=== PATIENT | male | born 1995 | race Caucasian/White ===

== ENCOUNTER 2017-01-22 15:37 | Emergency (ER) | payer OTHER ==
[2017-01-22 15:51] VITALS: BP 133/74; PULSE 75; TEMP 97.9; BMI 33.6
--- NOTE | 2017-01-22 15:52 | PDOC ---
Rapid Medical Evaluation Medical Evaluation: Allergies Allergy/AdvReac Type Severity Reaction Status Date / Time No Known Allergies Allergy Verified 01/22/17 15:52 Vital Signs Temp Pulse Resp BP Pulse Ox 97.9 F 75 18 133/74 98 01/22/17 15:49 01/22/17 15:49 01/22/17 15:49 01/22/17 15:49 01/22/17 15:49 <Cece Aguila - Last Filed: 01/22/17 17:38> Medical Evaluation: Allergies Allergy/AdvReac Type Severity Reaction Status Date / Time No Known Allergies Allergy Verified 06/03/16 15:38 01/22/17 15:47 I have performed a brief in-person evaluation of this patient. Mr. Huerta is a 21 yo otherwise healthy M who was walking up a hill, slipped on a patch of ice and fell. C/o lower back pain He denies head trauma, LOC, amnesia Pertinent physical exam findings: Ambulatory in to the Triage area with no difficulty Midline and right paraspinal tenderness to palpation No deformity The patient will proceed to fast track for further evaluation. <Rozina Aparicio - Last Filed: 01/24/17 14:14> Time Seen by Provider: 01/22/17 15:38
[2017-01-22] MEDS ORDERED: KETOROLAC TROMETHAMINE 60 MG/2 ML VIAL ONE (17:32)
[2017-01-22] MEDS ORDERED: CYCLOBENZAPRINE HCL 10 MG TABLET (FP) ONE (17:32)
[2017-01-22] MEDS ORDERED: OXYCODONE/APAP 5/325MG COMBO TABLET ONE (17:33)
[2017-01-22] MEDS ORDERED: OXYCODONE/APAP 5/325MG COMBO TABLET PO ONE (17:38)
[2017-01-22] MEDS ORDERED: CYCLOBENZAPRINE HCL 10 MG TABLET (FP) PO ONE (17:38)
[2017-01-22] MEDS ORDERED: KETOROLAC TROMETHAMINE 60 MG/2 ML VIAL IM ONE (17:38)
--- NOTE | 2017-01-22 17:44 | PDOC ---
History of Present Illness - General Chief Complaint: Pain Stated Complaint: FALL/ LOWER BACK PAIN Time Seen by Provider: 01/22/17 15:38 History Source: Patient, Parent(s) Exam Limitations: No Limitations - History of Present Illness Initial Comments: 01/22/17 17:40 Patient is here with low back pain, primarily right side. States works for [employer], slipped and fell backwards onto sustained back pain and some spasm. Denies numbness or tingling to hands or feet, denies head injury. Severity: reports: mild, moderate Pain Location: reports: none, back Method of Injury: Yes: direct blow, fall Loss of Consciousness: no loss of consciousness Associated Symptoms (Fall): denies symptoms Past History - Travel Traveled outside of the country in the last 30 days: No Close contact w/someone who was outside of country & ill: No - Past Medical History Allergies/Adverse Reactions: Allergies Allergy/AdvReac Type Severity Reaction Status Date / Time No Known Allergies Allergy Verified 01/22/17 15:52 Home Medications: Ambulatory Orders NK [No Known Home Medication] 06/03/16 - Immunization History Immunization Up to Date: Yes - Psycho/Social/Smoking Cessation Hx Anxiety: No Suicidal Ideation: No Smoking History: Never smoked Have you smoked in the past 12 months: No Information on smoking cessation initiated: No Hx Alcohol Use: No Drug/Substance Use Hx: No Substance Use Type: None Trauma Specific PMHX - Complaint Specific PMHX Back Injury: Yes Neck Injury: No Review of Systems - Review of Systems Able to Perform ROS?: Yes Is the patient limited Malagasy proficient: Yes Constitutional: Yes: Symptoms Reported, See HPI, Malaise. No: Fever HEENTM: Yes: See HPI. No: Symptoms Reported Respiratory: Yes: Symptoms reported, See HPI. No: Shortness of Breath, Wheezing Cardiac (ROS): No: Symptoms Reported Musculoskeletal: Yes: Symptoms Reported, See HPI, Back Pain, Muscle Pain Integumentary: Yes: Symptoms Reported, See HPI All Other Systems: Reviewed and Negative *Physical Exam - Vital Signs Last Vital Signs Temp Pulse Resp BP Pulse Ox 97.9 F 75 18 133/74 98 01/22/17 15:49 01/22/17 15:49 01/22/17 15:49 01/22/17 15:49 03/17/17 15:49 - Physical Exam General Appearance: Yes: Nourished, Appropriately Dressed, Apparent Distress, Mild Distress HEENT: positive: ALEXIS, Normal ENT Inspection, TMs Normal, Pharynx Normal Neck: positive: Supple. negative: Tender, Lymphadenopathy (R), Lymphadenopathy (L) Respiratory/Chest: positive: Lungs Clear, Normal Breath Sounds Cardiovascular: negative: Regular Rate Gastrointestinal/Abdominal: positive: Soft. negative: Tender Extremity: positive: Normal Capillary Refill, Normal Inspection, Normal Range of Motion Integumentary: positive: Dry, Warm, Pale. negative: Normal Color Neurologic: positive: boot lace cutter machine II-XII NML intact, Fully Oriented, Alert, Normal Mood/ Affect, Normal Response, Motor Strength 03/12 Progress Note - Progress Note Progress Note: post fall with mild back strain . Given 2 Percocet tablets for pain relief tonight, no prescription for Percocet however will send prescription for cyclobenzaprine *DC/Admit/Observation/Transfer Diagnosis at time of Disposition: Strain of back Qualifiers: Encounter type: initial encounter Qualified Code(s): S39.012A - Strain of muscle, fascia and tendon of lower back, initial encounter - Discharge Dispostion Disposition: HOME Condition at time of disposition: Stable Admit: No - Referrals Referrals: Any Wheatley MD [Primary Care Provider] - - Patient Instructions Printed Discharge Instructions: DI for Back Strain or Sprain Additional Instructions: Rest, no heavy lifting or exercise until pain is resolved Hot soaks to neck and low back as often as possible/hot showers or Jacuzzis No massage or therapy until spasm is gone Continue ibuprofen 2-200 mg tablets every 6 hours for the next 3 days then as needed for pain and swelling Cyclobenzaprine 1-10mg every 8 hours as needed for spasm If not significant improvement within 24 hours with medication and rest regime, followup with private physician for change in medications and /or therapy. - Post Discharge Activity Work/School Note: Back to Work
== END 2017-01-22 17:49 | disposition home or self-care (01) ==
LOC: JERFT 15:37 → SUPCPDRO 15:37 → JERFT 17:49
PROC: 3E0233Z Introduction of Anti-inflammatory into Muscle, Percutaneous Approach (ICD-10-PCS; principal; 2017-01-22)
DX: S39.012A Strain of muscle, fascia and tendon of lower back, initial encounter (principal); W18.39XA Other fall on same level, initial encounter; Y92.9 Unspecified place or not applicable; Y93.9 Activity, unspecified
CPT/HCPCS: 99281-25

== ENCOUNTER 2017-05-04 11:15 | Emergency (ER) | payer OTHER ==
[2017-05-04 11:26] VITALS: BP 134/75; PULSE 66; TEMP 98.3; BMI 35.2
--- NOTE | 2017-05-04 12:10 | PDOC ---
History of Present Illness - General Chief Complaint: Burn Stated Complaint: BURN/ LT FINGER Time Seen by Provider: 05/04/17 11:50 History Source: Patient Exam Limitations: No Limitations - History of Present Illness Initial Comments: 05/04/17 12:07 CHIEF COMPLAINT: Burn to the dorsum of the left fifth finger. HISTORY OF PRESENT ILLNESS: Patient is a 21 y/o male, no significant medical history employee of [employer]. Presents to the ER for evaluation of first degree burn to the fifth finger. While at work he was using a leaf pack plower, went to push blower back on the truck, hand touched the back of the engine where it was hot. Now with intact white patches, ? blisters to the palmar surface of the left fifth finger. 05/04/17 12:17 Occurred: reports: just prior to arrival Severity: reports: moderate Upper Extremity Pain Location: left: 5th finger Method of Injury: reports: burn Modifying Factors: improves with: None Extremity Pain Location - Extremity Pain Location Extremity Pain Locations: left: 5th finger Past History - Past Medical History Allergies/Adverse Reactions: Allergies Allergy/AdvReac Type Severity Reaction Status Date / Time No Known Allergies Allergy Verified 05/04/17 11:23 Other medical history: none - Immunization History Immunization Up to Date: Yes - Psycho/Social/Smoking Cessation Hx Anxiety: No Suicidal Ideation: No Smoking History: Never smoked Have you smoked in the past 12 months: No Information on smoking cessation initiated: No Hx Alcohol Use: No Drug/Substance Use Hx: No Substance Use Type: None Review of Systems - Review of Systems Constitutional: No: Symptoms Reported Respiratory: No: Symptoms reported Cardiac (ROS): No: Symptoms Reported Integumentary: Yes: Erythema, Other (pale area, mildly fluid filled blister ) Hematologic/Lymphatic: No: Lymph Node Abnormalities, Swollen Glands All Other Systems: Reviewed and Negative *Physical Exam - Vital Signs Last Vital Signs Temp Pulse Resp BP Pulse Ox 98.3 F 66 18 134/75 100 05/04/17 11:23 05/04/17 11:23 05/04/17 11:23 05/04/17 11:23 05/04/17 11:23 - Physical Exam General Appearance: Yes: Appropriately Dressed. No: Apparent Distress Neck: negative: Tender lateral, Tender midline Respiratory/Chest: positive: Lungs Clear, Normal Breath Sounds Lymphatic: negative: Adenopathy Musculoskeletal: negative: Decreased Range of Motion Extremity: positive: Erythema, Other (pale area to the PIP, no induration, mildly fluid filled blister over the palmar surface of the PIP. ) Integumentary: positive: Erythema. negative: Swelling, Ecchymosis, Bruising Neurologic: positive: Alert, Normal Mood/Affect Medical Decision Making - Medical Decision Making 05/04/17 12:32 A/P : Patient with first-degree burn to left fifth finger palmar surface not circumferential. Area over the PIP. No open area is noted. Bacitracin applied, clean sterile dressing, patient instructed to return if area opens for reevaluation and change in treatment. He verbalized understanding. Good ROM to finger. Tetanus is up to date. I discussed the physical exam findings, proper care instructions and final diagnoses with the patient. I answered all of the patient's questions. The patient was satisfied with the care received and felt comfortable with the discharge plan and treatment plan. The patient will call to arrange follow-up and will return to the Emergency Department with any new, persistent or worsening symptoms. 05/04/17 13:00 *DC/Admit/Observation/Transfer Diagnosis at time of Disposition: First degree burn injury - Discharge Dispostion Admit: No - Referrals Referrals: Any Wheatley MD [Primary Care Provider] - - Patient Instructions Printed Discharge Instructions: How to Take Care of a Burn Additional Instructions: Please keep area covered. Bacitracin twice a day, please clean area with mild soap and water between applications. If area blisters open return to the ER for evavluation and change in cream that will be applied to wound. If any increased redness, swelling or infection return to the ER - Post Discharge Activity Work/School Note: Back to Work
== END 2017-05-04 12:19 | disposition home or self-care (01) ==
LOC: JERFT 11:15
PROC: 2W2KX4Z Dressing of Left Finger using Bandage (ICD-10-PCS; principal; 2017-05-04)
DX: T23.122A Burn of first degree of single left finger (nail) except thumb, initial encounter (principal); X17.XXXA Contact with hot engines, machinery and tools, initial encounter; Y93.H9 Activity, other involving exterior property and land maintenance, building and construction; Y92.89 Other specified places as the place of occurrence of the external cause; Y99.0 Civilian activity done for income or pay
CPT/HCPCS: 99281-25

== ENCOUNTER 2018-06-17 11:01 | Emergency (ER) | payer BC, OTHER ==
[2018-06-17 11:27] VITALS: BP 139/84; PULSE 80; TEMP 97.7; BMI 36.8
--- NOTE | 2018-06-17 12:10 | PDOC ---
History of Present Illness - General Chief Complaint: Pain Stated Complaint: LT SIDE INJURY Time Seen by Provider: 06/17/18 11:34 History Source: Patient Exam Limitations: No Limitations - History of Present Illness Initial Comments: 06/17/18 12:08 2-year-old female status post injury to the left rib cage after playing softball yesterday complaining of left rib pain worsened with deep breathing and movement. Patient states took 2 Tylenol this morning with no improvement. Patient denies difficulty breathing, palpitations, dizziness or nausea 06/17/18 18:31 Timing/Duration: 24 hours Severity: mild Associated Symptoms: reports: chest pain Past History - Past Medical History Allergies/Adverse Reactions: Allergies Allergy/AdvReac Type Severity Reaction Status Date / Time No Known Allergies Allergy Verified 06/17/18 11:20 Home Medications: Ambulatory Orders NK [No Known Home Medication] 06/17/18 COPD: No Kidney Stones: Yes (FATTY LIVER) - Immunization History Immunization Up to Date: Yes - Suicide/Smoking/Psychosocial Hx Smoking History: Never smoked Have you smoked in the past 12 months: No Hx Alcohol Use: No Drug/Substance Use Hx: No Substance Use Type: None Patient Lives Alone: No Lives with/in: parents Review of Systems - Review of Systems Able to Perform ROS?: No Constitutional: No: Symptoms Reported HEENTM: No: Symptoms Reported Respiratory: No: Symptoms reported Cardiac (ROS): Yes: Chest Pain ABD/GI: No: Symptoms Reported Musculoskeletal: Yes: Joint Pain Integumentary: No: Symptoms Reported Neurological: No: Symptoms reported *Physical Exam - Vital Signs Last Vital Signs Temp Pulse Resp BP Pulse Ox 97.7 F 80 19 139/84 98 06/17/18 11:20 06/17/18 11:20 06/17/18 11:20 06/17/18 11:20 06/17/18 11:20 - Physical Exam General Appearance: Yes: Nourished, Appropriately Dressed. No: Apparent Distress Respiratory/Chest: positive: Chest Tender (left seventh intercostal space at midclavicular line ) Cardiovascular: positive: Regular Rhythm, Regular Rate. negative: Murmur Gastrointestinal/Abdominal: positive: Soft. negative: Tenderness Extremity: positive: Normal Capillary Refill Integumentary: positive: Normal Color, Warm, Moist Neurologic: positive: Motor Strength 5/5 ED Treatment Course - RADIOLOGY Radiology Studies Ordered: Category Date Time Status RIBS-LEFT SIDE [RAD] Stat Radiology 06/17/18 12:05 Ordered Medical Decision Making - Medical Decision Making 06/17/18 12:09 Injury to left chest pain supple yesterday complaining of left rib pain. Patient examined reproducible left rib cage pain without crepitus or deformity. Patient is without erythema or edema ecchymosis. Patient was ordered for rib x- ray series 06/17/18 12:40 X-rays negative for fracture. Patient to be discharged home with discharge instructions of rib contusion 06/17/18 12:40 *DC/Admit/Observation/Transfer Diagnosis at time of Disposition: Contusion of rib on left side - Discharge Dispostion Disposition: HOME Condition at time of disposition: Good - Referrals Referrals: Pablito Bear MD [Primary Care Provider] - - Patient Instructions Printed Discharge Instructions: DI for Rib Contusion Additional Instructions: Rest, take Tylenol for discomfort and apply ice effected area. Avoid movements that trigger your discomfort - Post Discharge Activity
== END 2018-06-17 12:48 | disposition home or self-care (01) ==
LOC: JERFT 11:01
DX: R07.81 Pleurodynia (principal); W21.03XA Struck by baseball, initial encounter; Y93.64 Activity, baseball; Y92.9 Unspecified place or not applicable
CPT/HCPCS: 71101-TC-FY; 99281-25

== ENCOUNTER 2018-08-30 15:37 | Emergency (ER) | payer BC ==
[2018-08-30 15:55] VITALS: BP 132/84; PULSE 81; TEMP 98.8; BMI 37.5
--- NOTE | 2018-08-30 16:01 | PDOC ---
Rapid Medical Evaluation Chief Complaint: Injury Time Seen by Provider: 08/30/18 15:56 Medical Evaluation: Allergies Allergy/AdvReac Type Severity Reaction Status Date / Time No Known Allergies Allergy Verified 08/30/18 15:51 Vital Signs Temp Pulse Resp BP Pulse Ox 98.8 F 81 20 132/84 97 08/30/18 15:51 08/30/18 15:51 08/30/18 15:51 08/30/18 15:51 08/30/18 15:51 08/30/18 15:56 I have performed a brief in-person evaluation of this patient. The patient presents with a chief complaint of: left foot pain s/p injury during football yesterday Pertinent physical exam findings: moderate tenderness over lateral side of left foot with mild swelling I have ordered the following: x-rays of left foot The patient will proceed to the ED for further evaluation. Discharge Disposition - Diagnosis Left foot pain - Referrals - Patient Instructions - Post Discharge Activity
--- NOTE | 2018-08-30 16:51 | PDOC ---
History of Present Illness - General Chief Complaint: Injury Stated Complaint: Injury Time Seen by Provider: 08/30/18 15:56 - History of Present Illness Initial Comments: 08/30/18 16:48 23-year-old male without comorbidities presents for evaluation of left foot pain. He states he was playing soft ball yesterday and was struck in the left foot with the ball. He's had pain and swelling since Past History - Past Medical History Allergies/Adverse Reactions: Allergies Allergy/AdvReac Type Severity Reaction Status Date / Time No Known Allergies Allergy Verified 08/30/18 15:51 Home Medications: Ambulatory Orders NK [No Known Home Medication] 06/17/18 NK [No Known Home Medication] 06/24/18 COPD: No Kidney Stones: Yes (FATTY LIVER) Liver Disease: Yes (FATTY LIVER) - Immunization History Immunization Up to Date: Yes - Suicide/Smoking/Psychosocial Hx Smoking History: Never smoked Have you smoked in the past 12 months: No Hx Alcohol Use: No Drug/Substance Use Hx: No Substance Use Type: None Review of Systems - Review of Systems Musculoskeletal: Yes: Symptoms Reported, See HPI All Other Systems: Reviewed and Negative *Physical Exam - Vital Signs Last Vital Signs Temp Pulse Resp BP Pulse Ox 98.8 F 81 20 132/84 97 08/30/18 15:51 08/30/18 15:51 08/30/18 15:51 08/30/18 15:51 08/30/18 15:51 - Physical Exam Comments: 08/30/18 16:48 Left foot is mildly ecchymotic at the MTPJ's of the second and third MTPJ. Mildly decreased range of motion with discomfort. No other areas of tenderness. Mild tenderness over the second and third MTPJ. Full ankle range of motion without instability no other areas tenderness about the dorsum of the foot. There are no gross sensorimotor deficits. Is neurovascular intact. Medical Decision Making - Medical Decision Making 08/30/18 16:49 NO evidence of acute fracture or trauma *DC/Admit/Observation/Transfer Diagnosis at time of Disposition: Left foot pain, Foot contusion - Discharge Dispostion Disposition: HOME Condition at time of disposition: Stable Decision to Admit order: No - Referrals Referrals: Pablito Bear MD [Primary Care Provider] - Mauricio Rust MD [Staff Physician] - - Patient Instructions Printed Discharge Instructions: Contusion Additional Instructions: He may weight-bear as tolerated with use of a hard sole shoe and crutches. Return to the emergency room should symptoms worsen or go unresolved. Follow-up with orthopedic surgery in 2-3 days for further evaluation and treatment options. - Post Discharge Activity
== END 2018-08-30 16:58 | disposition home or self-care (01) ==
LOC: JERFT 15:37 → JER 15:37 → JERFT 16:58
DX: S90.32XA Contusion of left foot, initial encounter (principal); W21.07XA Struck by softball, initial encounter; Y93.64 Activity, baseball; Y92.320 Baseball field as the place of occurrence of the external cause; Y99.8 Other external cause status
CPT/HCPCS: 73630-TC-LT; 99281-25

== ENCOUNTER 2018-12-27 11:04 | Emergency (ER) | payer OTHER, BC ==
[2018-12-27 11:23] VITALS: BP 127/86; PULSE 96; TEMP 98.7; BMI 37.5
--- NOTE | 2018-12-27 12:27 | PDOC ---
History of Present Illness - General Stated Complaint: LT LEG PAIN Time Seen by Provider: 12/27/18 12:18 - History of Present Illness Initial Comments: 12/27/18 12:22 23-year-old male without comorbidities presents for evaluation of left foot and ankle pain after twisting type injury while at work this morning. Past History - Past Medical History Allergies/Adverse Reactions: Allergies Allergy/AdvReac Type Severity Reaction Status Date / Time No Known Allergies Allergy Verified 12/27/18 11:18 Home Medications: Ambulatory Orders NK [No Known Home Medication] 06/17/18 NK [No Known Home Medication] 06/24/18 COPD: No Kidney Stones: Yes (FATTY LIVER) Liver Disease: Yes (FATTY LIVER) - Immunization History Immunization Up to Date: Yes - Suicide/Smoking/Psychosocial Hx Smoking History: Never smoked Have you smoked in the past 12 months: No Hx Alcohol Use: No Drug/Substance Use Hx: No Substance Use Type: None Review of Systems - Review of Systems Musculoskeletal: Yes: Joint Pain *Physical Exam - Vital Signs Last Vital Signs Temp Pulse Resp BP Pulse Ox 98.7 F 96 H 18 127/86 98 12/27/18 11:20 12/27/18 11:20 12/27/18 11:20 12/27/18 11:20 12/27/18 11:20 - Physical Exam Comments: 12/27/18 12:23 Left ankle skin color and temperature are normal. Range of motion is full. There is no tenderness about the knee proximal fibula, along its distal coarse, no tenderness about the medial lateral malleolus to the fifth metatarsal or navicular. There is mild tenderness over the ATFL and mild tenderness at the dorsum of the foot with metatarsal compression. No evidence of instability or gross sensorimotor deficits. Is neurovascularly intact. Moderate Sedation - Procedure Monitoring Vital Signs: Procedure Monitoring Vital Signs Temperature 98.7 F 12/27/18 11:20 Pulse Rate 96 H 12/27/18 11:20 Respiratory Rate 18 12/27/18 11:20 Blood Pressure 127/86 12/27/18 11:20 O2 Sat by Pulse Oximetry (%) 98 12/27/18 11:20 ED Treatment Course - RADIOLOGY Radiology Studies Ordered: Category Date Time Status ANKLE & FOOT-LEFT* [RAD] Stat Radiology 12/27/18 12:21 Ordered Medical Decision Making - Medical Decision Making 12/27/18 13:07 L foot and ankle no fx, moderate OA changes *DC/Admit/Observation/Transfer Diagnosis at time of Disposition: Sprain of foot, left, Sprain of ankle, left - Discharge Dispostion Disposition: HOME Condition at time of disposition: Stable Decision to Admit order: No - Referrals Referrals: Pablito Bear MD [Primary Care Provider] - Van Felix DO [Staff Physician] - - Patient Instructions Printed Discharge Instructions: Ankle Sprain, DI for Ankle Sprain, DI for Foot Sprain Additional Instructions: He may weight-bear as tolerated with use of the Aircast and crutches. Tylenol and Motrin as directed for pain and swelling. Return to the emergency room for worsening symptoms. Follow-up with orthopedic surgery in 1-2 days for further evaluation and treatment options. - Post Discharge Activity
== END 2018-12-27 13:17 | disposition home or self-care (01) ==
LOC: JERFT 11:04 → JER 11:04 → JERFT 13:17
PROC: 2W3RX1Z Immobilization of Left Lower Leg using Splint (ICD-10-PCS; principal; 2018-12-27)
DX: S93.402A Sprain of unspecified ligament of left ankle, initial encounter (principal); S93.602A Unspecified sprain of left foot, initial encounter; X50.1XXA Overexertion from prolonged static or awkward postures, initial encounter; Y93.H9 Activity, other involving exterior property and land maintenance, building and construction; Y92.89 Other specified places as the place of occurrence of the external cause; Y99.0 Civilian activity done for income or pay
CPT/HCPCS: 73610-TC-LT-FY; 73630-TC-LT; 99281-25

== ENCOUNTER 2019-01-27 15:27 | Emergency (ER) | payer BC, OTHER ==
--- NOTE | 2019-01-27 15:38 | PDOC ---
Rapid Medical Evaluation Time Seen by Provider: 01/27/19 15:36 Medical Evaluation: Allergies Allergy/AdvReac Type Severity Reaction Status Date / Time No Known Allergies Allergy Verified 01/27/19 15:36 01/27/19 15:37 I have performed a brief in-person evaluation of this patient. The patient presents with a chief complaint of:s/p slip and fall from standing, fell on L side, did not hit head no LOC at 11:30 this am and worked all day Pertinent physical exam findings:NAD no gross deficits. I have ordered the following:nothing 01/27/19 15:37 Discharge Disposition - Diagnosis Fall - Referrals - Patient Instructions - Post Discharge Activity
[2019-01-27 15:39] VITALS: BP 135/71; PULSE 84; TEMP 98.1; BMI 38.3
[2019-01-27] MEDS ORDERED: IBUPROFEN 600 MG TABLET (FP) PO ONE ×2 (16:26→16:30)
--- NOTE | 2019-01-27 16:31 | PDOC ---
History of Present Illness - General Chief Complaint: Injury Stated Complaint: FALL Time Seen by Provider: 01/27/19 15:36 History Source: Patient Exam Limitations: No Limitations - History of Present Illness Initial Comments: 01/27/19 16:26 Patient reports was at [employer] this morning/ When he slipped on wet floor falling onto his left side banging his left elbow, left hip, and mildly hyperextending his left thigh. Completed his work today but states has progressive pain to his left elbow when his left hip. Denies head injury, no neurologic issues, and has taken no medication for relief of pain. 01/27/19 16:28 Occurred: reports: this morning Severity: reports: mild, moderate Pain Location: reports: lower extremity (lefty hip and thigh), upper extremity ( left elbow) Method of Injury: Yes: direct blow, fall Modifying Factors: improves with: None Loss of Consciousness: no loss of consciousness Associated Symptoms (Fall): denies symptoms Past History - Travel Traveled outside of the country in the last 30 days: No Close contact w/someone who was outside of country & ill: No - Past Medical History Allergies/Adverse Reactions: Allergies Allergy/AdvReac Type Severity Reaction Status Date / Time No Known Allergies Allergy Verified 01/27/19 15:36 Home Medications: Ambulatory Orders NK [No Known Home Medication] 01/27/19 COPD: No Kidney Stones: Yes (FATTY LIVER) Liver Disease: Yes (FATTY LIVER) - Immunization History Immunization Up to Date: Yes - Suicide/Smoking/Psychosocial Hx Smoking History: Never smoked Have you smoked in the past 12 months: No Hx Alcohol Use: No Drug/Substance Use Hx: No Substance Use Type: None Trauma Specific PMHX - Complaint Specific PMHX Back Injury: Yes Neck Injury: No Review of Systems - Review of Systems Able to Perform ROS?: Yes Is the patient limited Occitan proficient: Yes Constitutional: Yes: Symptoms Reported, See HPI, Malaise HEENTM: Yes: Symptoms Reported, See HPI Respiratory: Yes: Symptoms reported, See HPI. No: Cough Musculoskeletal: Yes: Symptoms Reported, See HPI, Joint Pain, Joint Swelling ( left elbow) Integumentary: Yes: Symptoms Reported Neurological: Yes: See HPI. No: Symptoms reported, Headache All Other Systems: Reviewed and Negative *Physical Exam - Vital Signs Last Vital Signs Temp Pulse Resp BP Pulse Ox 98.1 F 84 18 135/71 98 01/27/19 15:36 01/27/19 15:36 01/27/19 15:36 01/27/19 15:36 01/27/19 15:36 - Physical Exam General Appearance: Yes: Nourished, Appropriately Dressed, Apparent Distress, Mild Distress HEENT: positive: ALEXIS, Normal ENT Inspection, TMs Normal, Pharynx Normal Neck: positive: Supple. negative: Tender Respiratory/Chest: positive: Lungs Clear Musculoskeletal: positive: Other (no bruising noted no bone tenderness along the vertebral spine, no contusions or other deformities noted. Patient has some mild swelling and tenderness midpoint left gluteus but no crepitus or step-offs , and is ambulatory without unsteadiness or limp.) Extremity: positive: Normal Capillary Refill, Normal Inspection. negative: Normal Range of Motion (mild tenderness with supination and pronation at left elbow, but able to flex and extend with strong grasp flexion and extension to fingers.) Integumentary: positive: Normal Color, Dry, Warm. 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 Multiple contusions status post fall, We'll treat with NSAIDs, and WYATT E *DC/Admit/Observation/Transfer Diagnosis at time of Disposition: Multiple contusions - Discharge Dispostion Disposition: HOME Condition at time of disposition: Stable Decision to Admit order: No - Referrals - Patient Instructions Printed Discharge Instructions: Easy Bruising (Alternative Therapy) Additional Instructions: Rest, ice to area on and off for 15 minutes 4-6 times a day Avoid heavy lifting or exercise until pain and swelling is resolved or until further directed Keep area highly elevated to reduce swelling Use splints/Enrike wrap as directed Followup with orthopedist in one to 2 days if not improving, if significantly improved may wait one week for followup with orthopedist May use ibuprofen every 6 hours as needed for pain - Post Discharge Activity Forms/Work/School Notes: Back to Work
== END 2019-01-27 16:56 | disposition home or self-care (01) ==
LOC: JERFT 15:27
DX: S70.02XA Contusion of left hip, initial encounter (principal); S50.02XA Contusion of left elbow, initial encounter; W01.0XXA Fall on same level from slipping, tripping and stumbling without subsequent striking against object, initial encounter; Y93.89 Activity, other specified; Y92.511 Restaurant or cafe as the place of occurrence of the external cause; Y99.0 Civilian activity done for income or pay
CPT/HCPCS: 73070-TC-LT-FY; 99281-25

== ENCOUNTER 2019-06-06 14:30 | Emergency (ER) | payer OTHER, BC ==
--- NOTE | 2019-06-06 14:38 | PDOC ---
Rapid Medical Evaluation Time Seen by Provider: 06/06/19 14:36 Medical Evaluation: Allergies Allergy/AdvReac Type Severity Reaction Status Date / Time No Known Allergies Allergy Verified 01/27/19 15:36 06/06/19 14:37 I have performed a brief in-person evaluation of this patient. The patient presents with a chief complaint of: itchy rash to b/l forearms x4 days Pertinent physical exam findings: pink blanching pruritc rash to b/l forearms c/ w toxicodendron dermatitis I have ordered the following: benadryl The patient will proceed to the ED for further evaluation. Discharge Disposition - Diagnosis Toxicodendron dermatitis - Referrals - Patient Instructions - Post Discharge Activity
[2019-06-06 14:40] VITALS: BP 124/82; PULSE 76; TEMP 98.3; BMI 34.4
[2019-06-06] MEDS ORDERED: diphenhydrAMINE HCL 25 MG CAPSULE (FP) PO ONE (14:46)
[2019-06-06] MEDS: diphenhydrAMINE HCL 25 MG CAPSULE (FP) PO ONE ×2 (14:47→14:49)
--- NOTE | 2019-06-06 16:04 | PDOC ---
History of Present Illness - General Chief Complaint: Poison [place],Poison Korin Exposure Stated Complaint: BODY RASH Time Seen by Provider: 06/06/19 14:36 History Source: Patient Exam Limitations: No Limitations Past History - Past Medical History Allergies/Adverse Reactions: Allergies Allergy/AdvReac Type Severity Reaction Status Date / Time No Known Allergies Allergy Verified 06/06/19 14:37 Home Medications: Ambulatory Orders Clobetasol Propionate/Emoll [Clobetasol Emollient 0.05% Crm] 30 gm TP BID #1 cream..g. 06/06/19 COPD: No Kidney Stones: No Liver Disease: No - Immunization History Immunization Up to Date: Yes - Suicide/Smoking/Psychosocial Hx Smoking History: Never smoked Have you smoked in the past 12 months: No Hx Alcohol Use: No Drug/Substance Use Hx: No Substance Use Type: None *Physical Exam - Vital Signs Last Vital Signs Temp Pulse Resp BP Pulse Ox 98.3 F 76 18 124/82 100 06/06/19 14:37 06/06/19 14:37 06/06/19 14:37 06/06/19 14:37 06/06/19 14:37 - Physical Exam General Appearance: No: Apparent Distress Integumentary: positive: Other (few scattered erythematous bumps along B/L forearms (difficult to visualize due to tattoos along patient's arms), no vesicular lesions noted, rash is not noted anywhere else on body). negative: Swelling, Ecchymosis, Bruising Neurologic: positive: Alert, Normal Mood/Affect ED Treatment Course - Medications Given in the ED: ED Medications Discontinued Medications Generic Name Dose Route Start Last Admin Trade Name Emanuel PRN Reason Stop Dose Admin Diphenhydramine HCl 50 mg 06/06/19 14:38 06/06/19 14:49 Benadryl - PO 06/06/19 14:39 Not Given ONCE ONE Medical Decision Making - Medical Decision Making 23 y/o M with no sig pmh presents with complain of itchy rash along B/L forearms x 5 days. 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 Tried topical hydrocortisone cream without much relief. Denies fever. Poison korin rash - care discussed 06/06/19 16:03 *DC/Admit/Observation/Transfer Diagnosis at time of Disposition: Toxicodendron dermatitis - Discharge Dispostion Disposition: HOME Condition at time of disposition: Stable Decision to Admit order: No - Prescriptions Prescriptions: Clobetasol Propionate/Emoll [Clobetasol Emollient 0.05% Crm] 30 gm TP BID #1 cream..g. - Referrals Referrals: Pablito Bear MD [Primary Care Provider] - 2 Days - Patient Instructions Printed Discharge Instructions: DI for Poison Korin Allergy Additional Instructions: Thank you for choosing [facility]. It was a pleasure taking care of you. Apply cream prescribed Also recommend oatmeal baths, cool, wet compresses If you notice any weeping lesions, you can apply Burow's solution Calamine lotion may also help relieve itch Return to the Emergency Department if your symptoms worsen or persist or have other concerning symptoms. - Post Discharge Activity
== END 2019-06-06 16:13 | disposition home or self-care (01) ==
LOC: JERFT 14:30
DX: L23.7 Allergic contact dermatitis due to plants, except food (principal); X58.XXXA Exposure to other specified factors, initial encounter; Y93.H2 Activity, gardening and landscaping; Y92.89 Other specified places as the place of occurrence of the external cause; Y99.0 Civilian activity done for income or pay
CPT/HCPCS: 99281-25

== ENCOUNTER 2019-06-08 10:00 | Emergency (ER) | payer OTHER, BC ==
[2019-06-08 10:06] VITALS: BP 121/78; PULSE 78; TEMP 98.1; BMI 34.4
--- NOTE | 2019-06-08 11:26 | PDOC ---
History of Present Illness - General Chief Complaint: Abrasion Stated Complaint: LT. 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 NO other complaints today, no active bleeding, no other injury. Last tetanus shot was 2 years ago. Past History - Past Medical History Allergies/Adverse Reactions: Allergies Allergy/AdvReac Type Severity Reaction Status Date / Time No Known Allergies Allergy Verified 06/08/19 10:04 Home Medications: Ambulatory Orders Clobetasol Propionate/Emoll [Clobetasol Emollient 0.05% Crm] 30 gm TP BID #1 cream..g. 06/06/19 COPD: No Kidney Stones: No Liver Disease: No - Immunization History Immunization Up to Date: Yes - Suicide/Smoking/Psychosocial Hx Smoking History: Never smoked Have you smoked in the past 12 months: No Hx Alcohol Use: No Drug/Substance Use Hx: No Substance Use Type: None Review of Systems - Review of Systems Able to Perform ROS?: Yes Constitutional: No: Chills, Fever, Malaise, Night Sweats HEENTM: No: Eye Pain, Recent change in vision, Throat Pain Respiratory: No: Cough, Shortness of Breath Cardiac (ROS): No: Chest Pain, Palpitations, Chest Tightness ABD/GI: No: Diarrhea, Nausea, Vomiting, Abdominal cramping : No: Dysuria, Hematuria Musculoskeletal: No: Back Pain Integumentary: No: Rash Neurological: No: Headache, Numbness, Dizziness Psychiatric: No: Change in Appetite Endocrine: No: Unexplained Weight Loss *Physical Exam - Vital Signs Last Vital Signs Temp Pulse Resp BP Pulse Ox 98.1 F 78 18 121/78 98 06/08/19 10:04 06/08/19 10:04 06/08/19 10:04 06/08/19 10:04 06/08/19 10:04 - Physical Exam General Appearance: Yes: Nourished. No: Apparent Distress HEENT: positive: ALEXIS, Normal ENT Inspection, Normal Voice. negative: Pale Conjunctivae, Scleral Icterus (R), Scleral Icterus (L) Neck: positive: Supple. negative: Decreased range of motion, Tender midline Respiratory/Chest: positive: Lungs Clear. negative: Respiratory Distress, Accessory Muscle Use Cardiovascular: positive: Regular Rate Gastrointestinal/Abdominal: positive: Soft Musculoskeletal: positive: Normal Inspection. negative: Decreased Range of Motion Extremity: positive: Normal Capillary Refill, Normal Inspection, Normal Range of Motion, Other (L lower leg with a 1mm puncture wound, no active bleeding now. No surrounding erythema, no swelling, no tenderness, no signs of infection. ). negative: Tender, Pedal Edema Integumentary: positive: Normal Color, Dry. negative: Jaundice, Rash Neurologic: positive: Fully Oriented, Alert, Normal Mood/Affect ED Treatment Course - RADIOLOGY Radiology Studies Ordered: Category Date Time Status LEG TIB/FIB-LEFT [RAD] Stat Radiology 06/08/19 10:53 Completed Medical Decision Making - Medical Decision Making 06/08/19 11:24 23 yo M w/ puncture wound sustained from object (he thinks it was glass) while at work. Pt asking for xray to R?O foreign body Xray done, no FB seen. Pt UTD with tetanus. Wound cleaned thoroughly with betadine, saline, bacitracin and sterile gauze applied to wound F/U with PMD in 2 days for wound check Return for worsening/concerning symptoms Pt verbalizes understanding and agrees with plan 06/08/19 11:36 *DC/Admit/Observation/Transfer Diagnosis at time of Disposition: Puncture wound - Discharge Dispostion Disposition: HOME Condition at time of disposition: Stable - Referrals - Patient Instructions Additional Instructions: Please follow up with your regular doctor in 2-3 days for reevaluation. Return to the ER for worsening/concerning symptoms including signs of infection like redness, discharge, swelling, pain or any other concerning symptoms. You may apply bacitracin to the wound for the next 2 days. - Post Discharge Activity Forms/Work/School Notes: Back to Work
== END 2019-06-08 11:27 | disposition home or self-care (01) ==
LOC: JERFT 10:00
DX: S81.832A Puncture wound without foreign body, left lower leg, initial encounter (principal); W26.8XXA Contact with other sharp object(s), not elsewhere classified, initial encounter; Y93.H9 Activity, other involving exterior property and land maintenance, building and construction; Y92.89 Other specified places as the place of occurrence of the external cause; Y99.0 Civilian activity done for income or pay
CPT/HCPCS: 73590-TC-LT-FY; 99281-25

== ENCOUNTER 2020-05-21 14:00 | Emergency (ER) | payer OTHER, BC ==
[2020-05-21 14:25] VITALS: BP 123/70; PULSE 74; TEMP 97.8; BMI 29.7
--- NOTE | 2020-05-21 15:14 | PDOC ---
History of Present Illness - General Chief Complaint: Injury Stated Complaint: SHOULDER INJURY Time Seen by Provider: 05/21/20 14:33 History Source: Patient Exam Limitations: No Limitations - History of Present Illness Initial Comments: 05/21/20 15:09 Patient is a 24-year-old male with no past medical history presents to the ED with left anterior shoulder pain that started at about 830 this morning. 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 He pulled the car seat and felt a strain in his anterior shoulder. He denies feeling a pop or crack. He continued to work for the remainder of the day but states the pain got worse. He states he was primarily using his right arm at that point. He denies any numbness or tingling. He states the pain is primarily on the anterior aspect of the shoulder but he does feel some pain laterally and posteriorly. He has not taken anything for his symptoms. Past History - Medical History Allergies/Adverse Reactions: Allergies Allergy/AdvReac Type Severity Reaction Status Date / Time No Known Allergies Allergy Verified 05/21/20 14:22 Home Medications: Ambulatory Orders Clobetasol Propionate/Emoll [Clobetasol Emollient 0.05% Crm] 30 gm TP BID #1 cream..g. 06/06/19 COPD: No Kidney Stones: No Liver Disease: No - Immunization History Immunization Up to Date: Yes - Psycho-Social/Smoking History Smoking History: Never smoked Have you smoked in the past 12 months: No Information on smoking cessation initiated: No - Substance Abuse Hx (Audit-C & DAST Scrn) How often the patient has a drink containing alcohol: Never Score: In Men: 4 or > Positive; In Women: 3 or > Positive: 0 Screen Result (Pos requires Nsg. Audit-10AR): Negative Review of Systems - Review of Systems Comments:: 05/21/20 15:10 - Review of Systems Able to Perform ROS?: Yes Constitutional: No: Fever, Chills, Loss of Appetite, Night Sweats, Weakness HEENTM: No: Eye Pain, Vision changes, Ear Pain, Throat Pain, Throat Swelling, Mouth Pain, Difficulty Swallowing Respiratory: No: Cough, Shortness of Breath, Wheezing, Sputum Production Cardiac (ROS): No: Chest Pain, Chest Tightness, Palpitations, Irregular Heart Beat, Edema ABD/GI: No: Nausea, Vomiting, Abdominal Pain, Diarrhea : No Dysuria, No Hematuria, No Frequency, No Urgency Musculoskeletal: No: Muscle Pain, Back Pain, Muscle Weakness, Neck Pain; positive: Left shoulder pain Integumentary: No: Lesions, Rash Neurological: No: Headache, Numbness, Tingling, Weakness, Speech Difficulties *Physical Exam - Vital Signs Last Vital Signs Temp Pulse Resp BP Pulse Ox 97.8 F 74 16 123/70 99 05/21/20 14:22 05/21/20 14:22 05/21/20 14:22 05/21/20 14:22 05/21/20 14:22 - Physical Exam 05/21/20 15:11 - Physical Exam General Appearance: Nourished, Appropriately Dressed, No Distress HEENT: EOMI, Normal Voice, Hearing Grossly Normal Neck: Supple, No Lymphadenopathy (R), No Lymphadenopathy (L), No Rigidity, No Decreased range of motion Respiratory/Chest: Lungs Clear, Normal Breath Sounds. No Respiratory Distress, No Accessory Muscle Use Cardiovascular: Regular Rhythm, Regular Rate, S1, S2 Gastrointestinal/Abdominal: Normal Bowel Sounds, Soft. Non-tender, No Guarding, No Rebound, No Rigidity Musculoskeletal: Normal Inspection. Left shoulder with anterior tenderness to palpation along the biceps tendon. Forward flexion to 100 degrees actively, internal rotation to the mid thoracic spine. Negative liftoff. Negative Neer's sign. Extremity: Normal Capillary Refill, Normal Inspection Integumentary: Normal Color, Dry. 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 Plan: Left shoulder x-ray shows no acute fracture or dislocation. There is no high riding of the humerus appreciated. The patient has been made aware that his symptoms may be secondary to a biceps tendinitis or rotator cuff injury. 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 The patient will also be referred to orthopedics today if this does not go through Worker's Compensation. The patient has been made aware that he can take Tylenol or ibuprofen for pain. He has been made aware that he should avoid working for the next several days to allow the injury to heal. He understands and agrees with this treatment plan and he is stable for discharge. Discharge - Discharge Information Problems reviewed: Yes Clinical Impression/Diagnosis: Left shoulder strain Qualifiers: Encounter type: initial encounter Qualified Code(s): S46.912A - Strain of unspecified muscle, fascia and tendon at shoulder and upper arm level, left arm, initial encounter Condition: Stable Disposition: HOME - Follow up/Referral Referrals: Pablito Bear MD [Primary Care Provider] - Andres Dorman MD [Staff Physician] - 3 days - Patient Discharge Instructions Patient Printed Discharge Instructions: DI for Shoulder Pain Additional Instructions: Get plenty of rest and avoid any strenuous activity. Take Tylenol or ibuprofen for pain. You can apply ice to help with swelling. Be sure to follow-up with orthopedics within 1 week for repeat evaluation. You have been referred to an orthopedist, but you may be required to go to Worker's Compensation through your job. - Post Discharge Activity Work/Back to School Note: Back to Work
== END 2020-05-21 15:23 | disposition home or self-care (01) ==
LOC: SUPCPDRO 14:00 → JERFT 14:00
DX: S46.912A Strain of unspecified muscle, fascia and tendon at shoulder and upper arm level, left arm, initial encounter (principal); X50.0XXA Overexertion from strenuous movement or load, initial encounter
CPT/HCPCS: 73030-TC-LT-FY; 99283-25

== ENCOUNTER 2020-07-02 07:28 | Emergency (ER) | payer BC, OTHER ==
[2020-07-02 07:43] VITALS: BP 121/78; PULSE 76; TEMP 98.1; BMI 30.5
[2020-07-02] MEDS ORDERED: SODIUM CHLORIDE 1,000 ML IV STA ×2 (07:48→09:48)
[2020-07-02 09:13] LABS: BASO % 0.8 % (0-2.0); EOS % 2.8 % (0-4.5); HEMATOCRIT 46.1 % (35.4-49); HEMOGLOBIN 15.7 GM/dL (11.7-16.9); LYMPH % 43.9 % (8-40); MEAN CELL VOLUME 91.2 fl (80-96); MEAN PLT VOLUME 7.8 fl (7.5-11.1); MONO % 7.4 % (3.8-10.2); NEUT % 45.1 % (42.8-82.8); PLATELET COUNT 210 K/MM3 (134-434); RBC 5.06 M/mm3 (4.00-5.60); RDW 13.3 % (11.9-15.9); WHITE BLOOD COUNT 5.3 K/mm3 (4.0-10.0)
[2020-07-02 09:34] LABS: ALK PHOS 65 U/L (45-117); ANION GAP 5 MMOL/L (8-16); BILIRUBIN,TOTAL 0.6 mg/dL (0.2-1); BLOOD UREA NITROGEN 11.4 mg/dL (7-18); CALCIUM 9.1 mg/dL (8.5-10.1); CHLORIDE 104 mmol/L (98-107); CO2 30 mmol/L (21-32); CREATININE 0.8 mg/dL (0.55-1.3); GLUCOSE,RANDOM 88 mg/dL (74-106); MAGNESIUM 2.2 mg/dL (1.8-2.4); POTASSIUM 4.2 mmol/L (3.5-5.1); SGOT/AST 27 U/L (15-37); SGPT/ALT 37 U/L (13-61); SODIUM 139 mmol/L (136-145); TOT PROT 7.6 g/dl (6.4-8.2)
[2020-07-02 09:49] LABS: PH,URINE 6.5 (5.0-8.0); URINE APPEARANCE CLEAR; URINE BILIRUBIN NEGATIVE (NEGATIVE); URINE COLOR YELLOW; URINE GLUCOSE (UA) NEGATIVE (NEGATIVE); URINE KETONE NEGATIVE (NEGATIVE); URINE LEUK ESTERASE NEGATIVE (NEGATIVE); URINE NITRITE NEGATIVE (NEGATIVE); URINE PROTEIN NEGATIVE (NEGATIVE); URINE UROBILINOGEN 0.2 mg/dL (0.2-1.0)
== END 2020-07-02 11:07 | disposition home or self-care (01) ==
LOC: JER 07:28
PROC: 3E0337Z Introduction of Electrolytic and Water Balance Substance into Peripheral Vein, Percutaneous Approach (ICD-10-PCS; principal; 2020-07-02)
DX: R74.8 Abnormal levels of other serum enzymes (principal); R53.1 Weakness
CPT/HCPCS: 36415; 80053; 81003; 82550; 82553; 83735; 84484; 85025; 99284-25

== ENCOUNTER 2020-11-13 14:32 | Emergency (ER) | payer BC, OTHER ==
[2020-11-13 14:56] VITALS: BP 139/101; PULSE 95; TEMP 98.3; BMI 39.1
[2020-11-13] MEDS ORDERED: ACETAMINOPHEN 500 MG TABLET (FP) PO ONE (15:39)
[2020-11-13] MEDS ORDERED: ACETAMINOPHEN 500 MG TABLET (FP) ONE (15:54)
== END 2020-11-13 17:11 | disposition home or self-care (01) ==
LOC: JERFT 14:32
DX: S39.012A Strain of muscle, fascia and tendon of lower back, initial encounter (principal)
CPT/HCPCS: 72100-TC-FY; 99283-25

== ENCOUNTER 2021-02-06 12:30 | Emergency (ER) | payer BC, OTHER ==
[2021-02-06 12:35] VITALS: BP 143/90; PULSE 94; TEMP 97.7; BMI 33.6
[2021-02-06] MEDS ORDERED: KETOROLAC TROMETHAMINE 60 MG/2 ML VIAL IM ONE (13:14)
[2021-02-06] MEDS ORDERED: LIDOCAINE 5% TOPICAL PATCH TP ONE (13:15)
[2021-02-06] MEDS ORDERED: LIDOCAINE 5% TOPICAL PATCH ONE (13:32)
[2021-02-06] MEDS ORDERED: KETOROLAC TROMETHAMINE 30 MG/1 ML VIAL ONE (13:32)
== END 2021-02-06 14:31 | disposition home or self-care (01) ==
LOC: JERFT 12:30
PROC: 3E0233Z Introduction of Anti-inflammatory into Muscle, Percutaneous Approach (ICD-10-PCS; principal; 2021-02-06)
DX: M54.5 Low back pain (principal)
CPT/HCPCS: 72100-TC-FY; 99284-25

== ENCOUNTER 2022-05-25 08:39 | Emergency (ER) | payer OTHER ==
[2022-05-25 08:53] VITALS: BP 133/83; PULSE 80; TEMP 98.3; BMI 34.4
[2022-05-25] MEDS ORDERED: ACETAMINOPHEN 500 MG TABLET (FP) PO ONE (10:28)
[2022-05-25] MEDS ORDERED: KETOROLAC TROMETHAMINE 30 MG/1 ML VIAL IM ONE (11:34)
[2022-05-25] MEDS ORDERED: LIDOCAINE 5% TOPICAL PATCH TP ONE (11:35)
[2022-05-25] MEDS ORDERED: IBUPROFEN 400 MG TABLET (FP) PO ONE (11:56)
[2022-05-25] MEDS ORDERED: LIDOCAINE PATCH REMOVAL MC ONE (22:00)
== END 2022-05-25 12:49 | disposition home or self-care (01) ==
LOC: JER 08:39 → JERFT 08:39
DX: S50.02XA Contusion of left elbow, initial encounter (principal); V48.0XXA Car driver injured in noncollision transport accident in nontraffic accident, initial encounter
CPT/HCPCS: 73070-TC-LT-FY; 99284-25